=== PATIENT | female | born 1955 | race African-American/Black ===

== ENCOUNTER 2016-06-29 13:38 | Emergency (ER) | payer MEDICARE, MEDICAID ==
[~2016-06-29] VITALS: Ht 162.6 cm; Wt 80.0 kg
[2016-06-29] MEDS ORDERED: KETOROLAC 30MG/ML VIAL IM ONE (15:15)
[2016-06-29] MEDS ORDERED: CYCLOBENZAPRINE 10MG TABLET PO ONE (15:15)
[2016-06-29 15:52] LABS: CLARITY URINE CLEAR (CLEAR); COLOR URINE YELLOW (YELLOW); GLUCOSE URINE NEGATIVE (NEGATIVE); KETONES URINE NEGATIVE (NEGATIVE); LEUKOCYTE ESTERASE URINE NEGATIVE (NEGATIVE); NITRITE URINE NEGATIVE (NEGATIVE); OCCULT BLOOD URINE NEGATIVE (NEGATIVE); PROTEIN URINE NEGATIVE (NEGATIVE); SPECIFIC GRAVITY URINE 1.023 (1.005-1.030); UROBILINOGEN URINE 0.2 E.U./dL (0.2-1.0)
[2016-06-29] MEDS ORDERED: HYDROCODONE/ACETAMINOPHEN 5/325MG TABLET PO ONE (16:45)
[2016-06-29 17:04] VITALS: BP 118/56
== END 2016-06-29 17:36 | disposition home or self-care (01) ==
LOC: ER 13:39
DX: S80.11XA Contusion of right lower leg, initial encounter (principal); K21.9 Gastro-esophageal reflux disease without esophagitis; E78.00 Pure hypercholesterolemia, unspecified; X58.XXXA Exposure to other specified factors, initial encounter; Y93.89 Activity, other specified; Y92.89 Other specified places as the place of occurrence of the external cause; Y99.8 Other external cause status
CPT/HCPCS: 36415; 81003; 85379; 96372; 99284; J1885

== ENCOUNTER 2016-07-05 07:18 | Emergency (ER) | payer MEDICARE, MEDICAID ==
[~2016-07-05] VITALS: Ht 162.6 cm; Wt 80.0 kg
[2016-07-05 07:33] VITALS: BP 117/79
== END 2016-07-05 10:22 | disposition home or self-care (01) ==
LOC: ER 08:50
DX: J20.9 Acute bronchitis, unspecified (principal); Z88.6 Allergy status to analgesic agent
CPT/HCPCS: 99283

== ENCOUNTER → 2016-09-05 | Outpatient (CLI) | payer MEDICARE, MEDICAID | END | disposition home or self-care (01) | LOC: MRI 08:58 | PROVIDERS: ATTEND Neurological Surgery | DX: M48.02 Spinal stenosis, cervical region (principal); M50.221 Other cervical disc displacement at C4-C5 level; M50.222 Other cervical disc displacement at C5-C6 level; M50.223 Other cervical disc displacement at C6-C7 level | CPT/HCPCS: 72141 ==

== ENCOUNTER 2016-11-10 17:30 | Inpatient (IN) | payer MEDICARE, MEDICAID ==
[~2016-11-10] VITALS: Ht 162.6 cm; Wt 84.4 kg
[~2016-11-10 17:30] MED LIST: CALC-1011 PO; ESOM40CA PO; HYDR-3933 PO
[2016-11-10 20:00] VITALS: BP 127/77
[2016-11-10] MEDS ORDERED: IPRATROPIUM/ALBUTEROL 0.5-3(2.5)MG/3ML NEB HHN PRN (21:30)
[2016-11-10] MEDS ORDERED: LACTULOSE 20G/30ML UDC PO PRN (21:30)
[2016-11-10] MEDS ORDERED: DIPHENHYDRAMINE 50MG CAPSULE PO PRN (21:30)
[2016-11-10] MEDS ORDERED: ONDANSETRON HCL 4MG/2ML VIAL IV PRN (21:30)
[2016-11-10] MEDS: HYDROCODONE/ACETAMINOPHEN 10/325MG TABLET PO PRN (21:59)
[2016-11-10] MEDS: DOCUSATE SODIUM 100MG CAPSULE PO SCH (22:13)
[2016-11-10 23:00] VITALS: BP 127/77
[2016-11-11 08:00] VITALS: BP 137/69
[2016-11-11] MEDS: DOCUSATE SODIUM 100MG CAPSULE PO SCH ×2 (08:36→18:03)
[2016-11-11] MEDS: HYDROCODONE/ACETAMINOPHEN 10/325MG TABLET PO PRN ×3 (08:38→21:10)
[2016-11-11] MEDS ORDERED: BISACODYL 5MG TABLET PO PRN (16:15)
[2016-11-11] MEDS ORDERED: TRAMADOL 50MG TABLET PO PRN (16:15)
[2016-11-11 20:00] VITALS: BP 129/80
[2016-11-11] MEDS ORDERED: PANTOPRAZOLE 40MG DR TABLET PO NR (21:00)
[2016-11-12] MEDS: PANTOPRAZOLE 40MG DR TABLET PO SCH (06:27)
[2016-11-12 06:33] LABS: BASOPHILS % 0.6 % (0.0-2.0); EOSINOPHILS % 3.8 % (0.0-5.0); HEMATOCRIT. 42.5 % (36.0-48.0); HEMOGLOBIN. 14.5 g/dL (12.0-16.0); LYMPHOCYTES % 31.8 % (20.0-50.0); MEAN CORPUSCULAR HEMOGLOBIN 29.4 pg (28.0-32.0); MEAN CORPUSCULAR VOLUME 86.3 fL (81.0-99.0); MEAN PLATELET VOLUME 8.9 fl (7.4-10.4); MONOCYTES % 7.5 % (2.0-8.0); NEUTROPHILS % 56.3 % (40.0-76.0); PLATELET 174 x1000/uL (130-400); RED BLOOD CELL COUNT 4.92 mill/uL (4.2-5.4)
[2016-11-12 07:36] LABS: CHLORIDE 102 mEq/L (98-107)
[2016-11-12 07:46] LABS: CARBON DIOXIDE 26 mEq/L (21-32); HDL CHOLESTEROL 50 mg/dL (40-59); LDL CHOLESTEROL 125 mg/dL (5-100)
[2016-11-12 08:00] VITALS: BP 122/82
[2016-11-12] MEDS: HYDROCODONE/ACETAMINOPHEN 10/325MG TABLET PO PRN ×2 (08:58→15:09)
[2016-11-12] MEDS: DOCUSATE SODIUM 100MG CAPSULE PO SCH ×2 (08:58→17:00)
[2016-11-12 20:00] VITALS: BP 130/78
[2016-11-12] MEDS: BISACODYL 10MG SUPP PR PRN (20:05)
[2016-11-12] MEDS: ATORVASTATIN CALCIUM 10MG TABLET PO SCH (20:06)
[2016-11-13] MEDS: PANTOPRAZOLE 40MG DR TABLET PO SCH (06:37)
[2016-11-13 08:00] VITALS: BP 111/61
[2016-11-13] MEDS: DOCUSATE SODIUM 100MG CAPSULE PO SCH ×2 (09:03→16:44)
[2016-11-13] MEDS: HYDROCODONE/ACETAMINOPHEN 10/325MG TABLET PO PRN ×2 (09:05→21:23)
[2016-11-13] MEDS ORDERED: ACETAMINOPHEN 325MG TABLET PO PRN (13:45)
[2016-11-13] MEDS: BACLOFEN 10MG TABLET PO SCH ×2 (14:01→16:44)
[2016-11-13 20:00] VITALS: BP 132/68
[2016-11-13] MEDS: ATORVASTATIN CALCIUM 10MG TABLET PO SCH (21:20)
[2016-11-14 08:00] VITALS: BP 110/62
[2016-11-14] MEDS: DOCUSATE SODIUM 100MG CAPSULE PO SCH ×2 (09:05→18:10)
[2016-11-14] MEDS: BACLOFEN 10MG TABLET PO SCH ×2 (09:05→18:11)
[2016-11-14] MEDS: FAMOTIDINE 20MG TABLET PO SCH ×2 (09:05→18:11)
[2016-11-14] MEDS: HYDROCODONE/ACETAMINOPHEN 10/325MG TABLET PO PRN ×2 (09:07→14:01)
[2016-11-14 19:00] VITALS: BP 129/81
[2016-11-14] MEDS: ATORVASTATIN CALCIUM 10MG TABLET PO SCH (21:11)
[2016-11-14] MEDS: HYDROMORPHONE HCL/PF 2MG/ML CPJ IM PRN (21:30)
[2016-11-14] MEDS: ONDANSETRON HCL 4MG TABLET PO PRN (23:27)
[2016-11-15] MEDS: FAMOTIDINE 20MG TABLET PO SCH ×2 (07:12→17:00)
[2016-11-15 08:00] VITALS: BP 109/57
[2016-11-15] MEDS: BACLOFEN 10MG TABLET PO SCH ×2 (08:44→17:00)
[2016-11-15] MEDS: DOCUSATE SODIUM 100MG CAPSULE PO SCH ×2 (08:44→17:00)
[2016-11-15] MEDS: HYDROMORPHONE HCL/PF 2MG/ML CPJ IM PRN (10:02)
[2016-11-15] MEDS: ONDANSETRON HCL 4MG TABLET PO PRN (16:03)
[2016-11-15] MEDS: HYDROCODONE/ACETAMINOPHEN 10/325MG TABLET PO PRN (16:04)
[2016-11-15 16:57] LABS: CLARITY URINE CLEAR (CLEAR); COLOR URINE YELLOW (YELLOW); GLUCOSE URINE NEGATIVE (NEGATIVE); KETONES URINE NEGATIVE (NEGATIVE); LEUKOCYTE ESTERASE URINE NEGATIVE (NEGATIVE); NITRITE URINE NEGATIVE (NEGATIVE); OCCULT BLOOD URINE NEGATIVE (NEGATIVE); PROTEIN URINE NEGATIVE (NEGATIVE); SPECIFIC GRAVITY URINE 1.013 (1.005-1.030)
[2016-11-15] MEDS: ACETAMINOPHEN 500MG TABLET PO SCH ×2 (17:00→21:00)
[2016-11-15] MEDS: LACTULOSE 20G/30ML UDC PO SCH (17:00)
[2016-11-15] MEDS: BISACODYL 10MG SUPP PR PRN (17:01)
[2016-11-15] MEDS: TRAMADOL 50MG TABLET PO SCH ×2 (17:01→21:00)
[2016-11-15 20:00] VITALS: BP 122/85
[2016-11-15] MEDS: ATORVASTATIN CALCIUM 10MG TABLET PO SCH (21:39)
[2016-11-16] MEDS: FAMOTIDINE 20MG TABLET PO SCH ×2 (05:25→16:15)
[2016-11-16 06:57] LABS: BASOPHILS % 0.7 % (0.0-2.0); EOSINOPHILS % 3.5 % (0.0-5.0); HEMATOCRIT. 41.4 % (36.0-48.0); HEMOGLOBIN. 14.1 g/dL (12.0-16.0); MEAN CORPUSCULAR HEMOGLOBIN 29.4 pg (28.0-32.0); MEAN CORPUSCULAR VOLUME 86.3 fL (81.0-99.0); MEAN PLATELET VOLUME 8.4 fl (7.4-10.4); MONOCYTES % 9.2 % (2.0-8.0); NEUTROPHILS % 49.6 % (40.0-76.0); PLATELET 175 x1000/uL (130-400); RED CELL DISTRIBUTION WIDTH 13.4 % (11.6-14.6)
[2016-11-16 07:26] LABS: CARBON DIOXIDE 28 mEq/L (21-32); CHLORIDE 103 mEq/L (98-107); TOTAL IRON BINDING CAPACITY 247 ug/dL (250-450)
[2016-11-16 08:00] VITALS: BP 111/78
[2016-11-16 08:13] LABS: FOLIC ACID (FOLATE) SERUM 17.8 ng/mL (>5.38)
[2016-11-16] MEDS: DOCUSATE SODIUM 100MG CAPSULE PO SCH ×2 (08:29→16:15)
[2016-11-16] MEDS: BACLOFEN 10MG TABLET PO SCH ×2 (08:29→16:15)
[2016-11-16] MEDS: ACETAMINOPHEN 500MG TABLET PO SCH ×4 (08:34→21:00)
[2016-11-16] MEDS: TRAMADOL 50MG TABLET PO SCH ×4 (08:34→21:00)
[2016-11-16] MEDS: HYDROMORPHONE HCL/PF 2MG/ML CPJ IM PRN (08:42)
[2016-11-16] MEDS: ONDANSETRON HCL 4MG TABLET PO PRN (11:00)
[2016-11-16] MEDS: LACTULOSE 20G/30ML UDC PO SCH (18:31)
[2016-11-16] MEDS: HYDROCODONE/ACETAMINOPHEN 10/325MG TABLET PO PRN (18:33)
[2016-11-16 20:00] VITALS: BP 140/44
[2016-11-16] MEDS: ATORVASTATIN CALCIUM 10MG TABLET PO SCH (21:25)
[2016-11-17] MEDS: FAMOTIDINE 20MG TABLET PO SCH ×2 (06:21→17:58)
[2016-11-17] MEDS: HYDROMORPHONE HCL/PF 2MG/ML CPJ IM PRN (06:21)
[2016-11-17 08:00] VITALS: BP 117/56
[2016-11-17] MEDS: DOCUSATE SODIUM 100MG CAPSULE PO SCH ×2 (08:15→17:58)
[2016-11-17] MEDS: BACLOFEN 10MG TABLET PO SCH ×3 (08:15→17:58)
[2016-11-17] MEDS: ACETAMINOPHEN 500MG TABLET PO SCH ×5 (08:15→21:00)
[2016-11-17] MEDS: TRAMADOL 50MG TABLET PO SCH ×5 (08:17→21:00)
[2016-11-17 08:19] LABS: T4 FREE 1.11 ng/dL (0.76-1.46)
[2016-11-17] MEDS: ONDANSETRON HCL 4MG TABLET PO PRN (08:25)
[2016-11-17 12:10] VITALS: BP 129/68
[2016-11-17] MEDS: HYDROCODONE/ACETAMINOPHEN 10/325MG TABLET PO PRN (12:16)
[2016-11-17 14:10] VITALS: BP 127/81
[2016-11-17] MEDS: LACTULOSE 20G/30ML UDC PO SCH (17:51)
[2016-11-17 20:00] VITALS: BP 110/48
[2016-11-17] MEDS: ATORVASTATIN CALCIUM 10MG TABLET PO SCH (21:00)
[2016-11-18] MEDS: FAMOTIDINE 20MG TABLET PO SCH ×2 (06:26→17:07)
[2016-11-18 08:00] VITALS: BP 113/70
[2016-11-18] MEDS: BACLOFEN 10MG TABLET PO SCH ×2 (08:25→17:07)
[2016-11-18] MEDS: DOCUSATE SODIUM 100MG CAPSULE PO SCH ×2 (08:25→17:07)
[2016-11-18] MEDS: HYDROCODONE/ACETAMINOPHEN 10/325MG TABLET PO PRN ×2 (08:26→16:29)
[2016-11-18] MEDS: ACETAMINOPHEN 500MG TABLET PO SCH ×2 (08:28→13:00)
[2016-11-18] MEDS: TRAMADOL 50MG TABLET PO SCH ×2 (08:28→13:00)
[2016-11-18] MEDS: LACTULOSE 20G/30ML UDC PO SCH (17:07)
[2016-11-18 20:00] VITALS: BP 105/55
[2016-11-18] MEDS: BISACODYL 10MG SUPP PR PRN (21:30)
[2016-11-18] MEDS: ATORVASTATIN CALCIUM 10MG TABLET PO SCH (21:30)
[2016-11-19] MEDS: FAMOTIDINE 20MG TABLET PO SCH ×2 (06:21→17:37)
[2016-11-19 06:58] VITALS: BP 104/55
[2016-11-19] MEDS: DOCUSATE SODIUM 100MG CAPSULE PO SCH ×2 (08:25→17:37)
[2016-11-19] MEDS: BACLOFEN 10MG TABLET PO SCH ×2 (08:25→17:37)
[2016-11-19 11:40] VITALS: BP 110/76
[2016-11-19] MEDS: HYDROCODONE/ACETAMINOPHEN 10/325MG TABLET PO PRN ×2 (11:40→23:46)
[2016-11-19] MEDS: LACTULOSE 20G/30ML UDC PO SCH (18:00)
[2016-11-19 20:29] VITALS: BP 126/78
[2016-11-19] MEDS: ATORVASTATIN CALCIUM 10MG TABLET PO SCH (21:21)
[2016-11-20] MEDS: FAMOTIDINE 20MG TABLET PO SCH ×2 (05:58→18:01)
[2016-11-20 08:00] VITALS: BP 99/57
[2016-11-20] MEDS: DOCUSATE SODIUM 100MG CAPSULE PO SCH ×2 (08:31→18:01)
[2016-11-20] MEDS: BACLOFEN 10MG TABLET PO SCH ×2 (08:31→18:01)
[2016-11-20] MEDS: HYDROCODONE/ACETAMINOPHEN 10/325MG TABLET PO PRN (15:09)
[2016-11-20 15:10] VITALS: BP 122/65
[2016-11-20 15:43] VITALS: BP 122/65
[2016-11-20] MEDS: LACTULOSE 20G/30ML UDC PO SCH (18:00)
== END 2016-11-20 18:57 | disposition home health service (06) | DRG 552 ==
PROVIDERS: ADMIT Psychiatry & Neurology Neurology; ATTEND Internal Medicine
DX: M48.02 Spinal stenosis, cervical region (principal); G95.89 Other specified diseases of spinal cord; I10 Essential (primary) hypertension; E11.9 Type 2 diabetes mellitus without complications; E78.5 Hyperlipidemia, unspecified; K59.00 Constipation, unspecified; M54.12 Radiculopathy, cervical region; M54.40 Lumbago with sciatica, unspecified side; M79.7 Fibromyalgia; L29.9 Pruritus, unspecified; F41.9 Anxiety disorder, unspecified; F32.9 Major depressive disorder, single episode, unspecified; M50.30 Other cervical disc degeneration, unspecified cervical region; R26.89 Other abnormalities of gait and mobility; F06.31 Mood disorder due to known physiological condition with depressive features; G89.4 Chronic pain syndrome; Z79.899 Other long term (current) drug therapy; Z88.6 Allergy status to analgesic agent
CPT/HCPCS: 36415; 80048; 80053; 80061; 81003; 82306; 82607; 82728; 82746; 83540; 83550; 84439; 84443; 84481; 84630; 85025; 87086; 92610; 93970; 94664; 97110; 97116; 97163; 97167; 97530; 97535; J1170; J7620; Q0162

== ENCOUNTER → 2017-01-02 | Outpatient (CLI) | payer MEDICARE, MEDICAID ==
[~2017-01-02] MED LIST changes: -HYDR-3933 PO; +HYDR-4009 PO
== END | disposition home or self-care (01) ==
LOC: RAD 12:44
PROVIDERS: ATTEND Neurological Surgery
DX: M47.892 Other spondylosis, cervical region (principal)
CPT/HCPCS: 72052

== ENCOUNTER → 2017-06-30 | Outpatient (CLI) | payer MEDICARE, MEDICAID | END | disposition home or self-care (01) | LOC: MRI 09:10 | PROVIDERS: ATTEND Internal Medicine | DX: S86.812A Strain of other muscle(s) and tendon(s) at lower leg level, left leg, initial encounter (principal); M22.42 Chondromalacia patellae, left knee; X58.XXXA Exposure to other specified factors, initial encounter; Y93.89 Activity, other specified; Y92.89 Other specified places as the place of occurrence of the external cause; Y99.8 Other external cause status | CPT/HCPCS: 73721 ==

== ENCOUNTER 2017-11-14 10:32 | Emergency (ER) | payer MEDICARE, MEDICAID ==
[~2017-11-14] VITALS: Ht 162.6 cm; Wt 80.0 kg
[2017-11-14 11:05] VITALS: BP 127/71
== END 2017-11-14 16:15 | disposition left against medical advice (07) ==
LOC: ER 12:39
DX: M54.5 Low back pain (principal); R10.30 Lower abdominal pain, unspecified; E78.00 Pure hypercholesterolemia, unspecified; H40.9 Unspecified glaucoma; Z47.1 Aftercare following joint replacement surgery; Z53.21 Procedure and treatment not carried out due to patient leaving prior to being seen by health care provider

== ENCOUNTER → 2017-12-12 | Outpatient (CLI) | payer MEDICARE, MEDICAID | END | disposition home or self-care (01) | LOC: MRI 12:33 | PROVIDERS: ATTEND Internal Medicine | DX: M25.551 Pain in right hip (principal); M54.16 Radiculopathy, lumbar region | CPT/HCPCS: 72195 ==

== ENCOUNTER → 2018-02-20 | Outpatient (CLI) | payer MEDICARE, MEDICAID | END | disposition home or self-care (01) | LOC: MRI 10:11 | PROVIDERS: ATTEND Neurological Surgery | DX: M50.322 Other cervical disc degeneration at C5-C6 level (principal); M48.02 Spinal stenosis, cervical region; M47.892 Other spondylosis, cervical region | CPT/HCPCS: 72052; 72141 ==

== ENCOUNTER → 2018-12-19 | Outpatient (CLI) | payer MEDICARE, OTHER | END | disposition home or self-care (01) | LOC: MRI 08:45 | PROVIDERS: ATTEND Neurological Surgery | DX: M48.061 Spinal stenosis, lumbar region without neurogenic claudication (principal); M48.04 Spinal stenosis, thoracic region; M47.816 Spondylosis without myelopathy or radiculopathy, lumbar region | CPT/HCPCS: 72114; 72148 ==

== ENCOUNTER → 2020-01-22 | Outpatient (CLI) | payer MEDICARE, MEDICAID | END | disposition home or self-care (01) | LOC: MRI 10:02 | PROVIDERS: ATTEND Neurological Surgery | DX: M47.27 Other spondylosis with radiculopathy, lumbosacral region (principal); M47.814 Spondylosis without myelopathy or radiculopathy, thoracic region; M51.35 Other intervertebral disc degeneration, thoracolumbar region; M51.27 Other intervertebral disc displacement, lumbosacral region; M51.24 Other intervertebral disc displacement, thoracic region; M48.07 Spinal stenosis, lumbosacral region | CPT/HCPCS: 72114; 72148 ==

== ENCOUNTER → 2020-09-10 | Outpatient (CLI) | payer MEDICARE, MEDICAID ==
[~2020-09-10] MED LIST changes: -CALC-1011 PO; -ESOM40CA PO; +LACT10SO6 PO; +PANT40TA51 PO; +TRAV2.5D EACHEYE
== END | disposition home or self-care (01) ==
LOC: MRI 10:11
PROVIDERS: ATTEND Neurological Surgery
DX: M43.16 Spondylolisthesis, lumbar region (principal); M51.27 Other intervertebral disc displacement, lumbosacral region; M48.07 Spinal stenosis, lumbosacral region; M51.25 Other intervertebral disc displacement, thoracolumbar region; M48.05 Spinal stenosis, thoracolumbar region; M54.9 Dorsalgia, unspecified; Z98.1 Arthrodesis status
CPT/HCPCS: 72114; 72148

== ENCOUNTER 2020-10-31 10:06 | Emergency (ER) | payer MEDICARE, MEDICAID ==
[~2020-10-31] VITALS: Ht 162.6 cm; Wt 85.0 kg
[~2020-10-31 10:06] MED LIST changes: -TRAV2.5D EACHEYE; +TRAV2.5D9 EACHEYE
[2020-10-31 10:31] VITALS: BP 155/76
[2020-10-31] MEDS ORDERED: BACITRACIN ZINC OINT UDPKT TOP ONE (11:00)
[2020-10-31] MEDS ORDERED: LIDOCAINE HCL/EPINEPHRINE 1%-EPI 1:100,000 20 ML VIAL INFIL ONE (11:00)
[2020-10-31] MEDS ORDERED: KETOROLAC 60MG/2ML VIAL IM ONE (11:00)
[2020-10-31] MEDS ORDERED: SULF1TAB48 MT ×2 (11:09)
[2020-10-31] MEDS ORDERED: CEPH500C2 MT ×2 (11:09)
== END 2020-10-31 11:46 | disposition home or self-care (01) ==
LOC: ER 10:06
DX: L02.212 Cutaneous abscess of back [any part, except buttock and flank] (principal); M25.512 Pain in left shoulder; E78.5 Hyperlipidemia, unspecified; H40.9 Unspecified glaucoma; Z88.5 Allergy status to narcotic agent
CPT/HCPCS: 10060; 96372; 99283; J1885

== ENCOUNTER 2020-11-04 07:42 | Emergency (ER) | payer MEDICARE, MEDICAID ==
[~2020-11-04] VITALS: Ht 162.6 cm; Wt 81.0 kg
[~2020-11-04 07:42] MED LIST changes: +CEPH500C2 MT; +SULF1TAB48 MT
[2020-11-04] MEDS ORDERED: HYDROCODONE/ACETAMINOPHEN 5/325MG TABLET PO ONE (08:15)
[2020-11-04 08:22] VITALS: BP 133/74
== END 2020-11-04 08:47 | disposition home or self-care (01) ==
LOC: ER 07:42
DX: Z48.00 Encounter for change or removal of nonsurgical wound dressing (principal); I10 Essential (primary) hypertension; H40.9 Unspecified glaucoma; E78.00 Pure hypercholesterolemia, unspecified; M19.90 Unspecified osteoarthritis, unspecified site; Z98.1 Arthrodesis status; Z88.2 Allergy status to sulfonamides
CPT/HCPCS: 99282

== ENCOUNTER 2020-11-09 08:28 | Inpatient (IN) | payer MEDICARE, MEDICAID ==
[~2020-11-09] VITALS: Ht 162.6 cm; Wt 80.7 kg
[2020-11-09] MEDS ORDERED: MORPHINE SULFATE 4 MG/ML CPJ (NOT FOR IM USE) IV STA (10:09)
[2020-11-09] MEDS ORDERED: KETOROLAC 30MG/ML VIAL IV ONE (10:45)
[2020-11-09 11:35] LABS: BASOPHILS % 0.7 % (0.0-2.0); HEMATOCRIT. 40.5 % (36.0-48.0); HEMOGLOBIN. 13.6 g/dL (12.0-16.0); MEAN CORPUSCULAR HEMOGLOBIN 28.9 pg (28.0-32.0); MEAN CORPUSCULAR VOLUME 85.8 fL (81.0-99.0); MEAN PLATELET VOLUME 9.2 fl (7.4-10.4); MONOCYTES % 8.2 % (2.0-8.0); NEUTROPHILS % 56.1 % (40.0-76.0); PLATELET 187 x1000/uL (130-400); RED BLOOD CELL COUNT 4.71 mill/uL (4.2-5.4); RED CELL DISTRIBUTION WIDTH 14.4 % (11.6-14.6)
[2020-11-09 11:41] LABS: CHLORIDE 107 mEq/L (98-107)
[2020-11-09] MEDS ORDERED: OXYCODONE HCL/ACETAMINOPHEN 5/325MG TABLET PO ONE (12:30)
[2020-11-09] MEDS ORDERED: MORPHINE SULFATE 4 MG/ML CPJ (NOT FOR IM USE) IV ONE (12:30)
[2020-11-09] MEDS ORDERED: MAGNESIUM/ALUMINUM HYDROXIDE/SIMETHICONE 30ML UDC PO PRN (13:45)
[2020-11-09] MEDS ORDERED: DOCUSATE SODIUM 100MG CAPSULE PO PRN (13:45)
[2020-11-09] MEDS ORDERED: GUAIFENESIN 200MG/10ML SUGAR FREE UDC PO PRN (13:45)
[2020-11-09] MEDS ORDERED: CLONIDINE 0.1MG TABLET PO PRN (13:45)
[2020-11-09] MEDS ORDERED: ACETAMINOPHEN 325MG TABLET PO PRN (13:45)
[2020-11-09] MEDS ORDERED: HYDROCODONE/ACETAMINOPHEN 5/325MG TABLET PO PRN (13:45)
[2020-11-09] MEDS ORDERED: NALOXONE HCL 0.4MG/ML VIAL IV PRN (14:00)
[2020-11-09 15:40] LABS: CREATINE KINASE 151 IU/L (26-192)
[2020-11-09 16:00] VITALS: BP 139/65
[2020-11-09] MEDS: ENOXAPARIN 40MG/0.4ML SYR SUBCUT SCH (16:33)
[2020-11-09] MEDS: HYDROMORPHONE HCL/PF 2MG/ML CPJ IV PRN ×2 (16:34→20:51)
[2020-11-09 16:52] VITALS: BP 139/65
[2020-11-09] MEDS ORDERED: *PATIENT'S OWN MEDICATION STORAGE XX SCH (17:30)
[2020-11-09 20:00] VITALS: BP 136/67
[2020-11-09 22:00] VITALS: BP 131/76
[2020-11-09] MEDS: ONDANSETRON HCL 4MG/2ML INJ IV PRN (22:23)
[2020-11-09 23:51] LABS: CREATINE KINASE 145 IU/L (26-192)
[2020-11-10] VITALS (8 sets, daily range): BP systolic 95–134; BP diastolic 51–74
[2020-11-10 06:34] LABS: CHLORIDE 107 mEq/L (98-107)
[2020-11-10 06:57] LABS: BASOPHILS % 0.8 % (0.0-2.0); EOSINOPHILS % 3.7 % (0.0-5.0); HEMATOCRIT. 39.6 % (36.0-48.0); HEMOGLOBIN. 13.3 g/dL (12.0-16.0); LYMPHOCYTES % 48.9 % (20.0-50.0); MEAN CORPUSCULAR HEMOGLOBIN 28.9 pg (28.0-32.0); MEAN CORPUSCULAR VOLUME 86.1 fL (81.0-99.0); MEAN PLATELET VOLUME 9.2 fl (7.4-10.4); MONOCYTES % 8.3 % (2.0-8.0); NEUTROPHILS % 38.3 % (40.0-76.0); PLATELET 179 x1000/uL (130-400); RED CELL DISTRIBUTION WIDTH 14.2 % (11.6-14.6)
[2020-11-10 07:04] LABS: LDL CHOLESTEROL 126 mg/dL (5-100)
[2020-11-10 07:05] LABS: HDL CHOLESTEROL 57 mg/dL (40-59)
[2020-11-10] MEDS: AMLODIPINE 10MG TABLET PO SCH (08:43)
[2020-11-10] MEDS: ASPIRIN 81MG EC TABLET PO SCH (08:44)
[2020-11-10] MEDS: HYDROMORPHONE HCL/PF 2MG/ML CPJ IV PRN ×3 (08:52→20:38)
[2020-11-10] MEDS ORDERED: METHOCARBAMOL 500MG TABLET PO PRN (15:30)
[2020-11-10] MEDS ORDERED: HYDROCODONE/ACETAMINOPHEN 10/325MG TABLET PO PRN (15:30)
[2020-11-10] MEDS: ENOXAPARIN 40MG/0.4ML SYR SUBCUT SCH (16:25)
[2020-11-10] MEDS ORDERED: ATORVASTATIN CALCIUM 40MG TABLET PO SCH (21:00)
[2020-11-10] MEDS: GABAPENTIN 300MG CAPSULE PO SCH (21:07)
[2020-11-11] VITALS: BP 102/58
[2020-11-11 04:00] VITALS: BP 100/54
[2020-11-11] MEDS: GABAPENTIN 300MG CAPSULE PO SCH ×2 (06:43→15:20)
[2020-11-11 08:00] VITALS: BP 118/68
[2020-11-11] MEDS: ASPIRIN 81MG EC TABLET PO SCH (10:09)
[2020-11-11] MEDS: AMLODIPINE 10MG TABLET PO SCH (10:10)
[2020-11-11] MEDS: HYDROMORPHONE HCL/PF 2MG/ML CPJ IV PRN (11:54)
[2020-11-11 14:13] VITALS: BP 106/53
[2020-11-11] MEDS: ONDANSETRON HCL 4MG/2ML INJ IV PRN (15:21)
[2020-11-11] MEDS: ENOXAPARIN 40MG/0.4ML SYR SUBCUT SCH (15:21)
[2020-11-11] MEDS ORDERED: ATORVASTATIN CALCIUM 40MG TABLET PO SCH (21:00)
[2020-11-11] MEDS ORDERED: ATORVASTATIN CALCIUM 20MG TABLET PO SCH (21:00)
== END 2020-11-11 15:55 | disposition home health service (06) | DRG 552 ==
LOC: ER 08:28 → 8WST 12:31 → EDBEDREQTM 12:37 → EDBEDREQ 12:37 → ENRESERV 12:48
PROVIDERS: ADMIT Hospitalist; ATTEND Hospitalist
DX: M47.26 Other spondylosis with radiculopathy, lumbar region (principal); M94.0 Chondrocostal junction syndrome [Tietze]; M51.16 Intervertebral disc disorders with radiculopathy, lumbar region; E78.5 Hyperlipidemia, unspecified; I10 Essential (primary) hypertension; G89.29 Other chronic pain; M54.5 Low back pain; Z98.1 Arthrodesis status; Z79.899 Other long term (current) drug therapy; Z88.6 Allergy status to analgesic agent; R10.9 Unspecified abdominal pain
CPT/HCPCS: 36415; 71045; 72148; 74176; 80053; 80061; 82550; 83880; 84484; 85025; 93005; 93306; 93970; 97162; 99285; C1893; J1170; J1650; J1885; J2270; J2405

== ENCOUNTER → 2020-11-20 | Outpatient (CLI) | payer MEDICARE, MEDICAID ==
[~2020-11-20] MED LIST changes: -CEPH500C2 MT; -LACT10SO6 PO; -SULF1TAB48 MT
== END | disposition home or self-care (01) ==
LOC: MRI 12:31
PROVIDERS: ATTEND Orthopaedic Surgery
DX: M16.0 Bilateral primary osteoarthritis of hip (principal); M70.71 Other bursitis of hip, right hip; N32.89 Other specified disorders of bladder; M25.752 Osteophyte, left hip; M25.751 Osteophyte, right hip
CPT/HCPCS: 72195

== ENCOUNTER → 2021-02-24 | Outpatient (CLI) | payer MEDICARE, MEDICAID | END | disposition home or self-care (01) | LOC: MRI 10:19 | PROVIDERS: ATTEND Neurological Surgery | DX: M48.05 Spinal stenosis, thoracolumbar region (principal); M89.38 Hypertrophy of bone, other site; M43.26 Fusion of spine, lumbar region; Q05.7 Lumbar spina bifida without hydrocephalus | CPT/HCPCS: 72148 ==

== ENCOUNTER → 2021-10-01 | Outpatient (CLI) | payer MEDICARE, MEDICAID ==
[~2021-10-01] MED LIST changes: +ACET-2708 MT; +ATOR10TA MT; +LIDO1ADH23 TP; +MED4 MT; +MELO-104 MT; +METH-773 MT; +SULF1TAB48 MT
== END | disposition home or self-care (01) ==
LOC: MRI 09:44
PROVIDERS: ATTEND Neurological Surgery
DX: M51.37 Other intervertebral disc degeneration, lumbosacral region (principal); M54.51 Vertebrogenic low back pain
CPT/HCPCS: 72148

== ENCOUNTER 2022-01-24 13:26 | Emergency (ER) | payer MEDICARE, MEDICAID ==
[~2022-01-24] VITALS: Ht 167.6 cm; Wt 77.0 kg
[2022-01-24 13:29] VITALS: BP 108/81
[2022-01-24 16:54] LABS: BASOPHILS % 1.2 % (0.0-2.0); EOSINOPHILS % 1.7 % (0.0-5.0); HEMATOCRIT. 42.1 % (36.0-48.0); HEMOGLOBIN. 14.3 g/dL (12.0-16.0); LYMPHOCYTES % 41.4 % (20.0-50.0); MEAN CORPUSCULAR HEMOGLOBIN 29.1 pg (28.0-32.0); MEAN CORPUSCULAR VOLUME 85.9 fL (81.0-99.0); MONOCYTES % 6.1 % (2.0-8.0); NEUTROPHILS % 49.6 % (40.0-76.0); PLATELET 193 x1000/uL (130-400); RED CELL DISTRIBUTION WIDTH 13.7 % (11.6-14.6)
[2022-01-24 17:03] LABS: CHLORIDE 101 mEq/L (98-107)
[2022-01-24 17:22] LABS: CLARITY URINE CLEAR (CLEAR); COLOR URINE YELLOW (YELLOW); KETONES URINE NEGATIVE (NEGATIVE); LEUKOCYTE ESTERASE URINE TRACE (NEGATIVE); NITRITE URINE NEGATIVE (NEGATIVE); OCCULT BLOOD URINE NEGATIVE (NEGATIVE); PH URINE 6.5 (4.5-8.0); PROTEIN URINE NEGATIVE (NEGATIVE); SPECIFIC GRAVITY URINE 1.019 (1.005-1.030); UROBILINOGEN URINE 0.2 E.U./dL (0.2-1.0)
[2022-01-24] MEDS ORDERED: DOCU250C69 MT (18:14)
== END 2022-01-24 18:31 | disposition home or self-care (01) ==
LOC: ER 13:26
DX: K59.00 Constipation, unspecified (principal); M54.59 Other low back pain; R35.0 Frequency of micturition
CPT/HCPCS: 36415; 74176; 80053; 81003; 85025; 99284

== ENCOUNTER 2022-04-06 10:17 | Emergency (ER) | payer MEDICARE, MEDICAID ==
[~2022-04-06] VITALS: Ht 162.6 cm; Wt 79.0 kg
[~2022-04-06 10:17] MED LIST changes: +DOCU250C69 MT
[2022-04-06] MEDS ORDERED: ONDANSETRON HCL 4MG/2ML INJ IV STA (11:18)
[2022-04-06] MEDS ORDERED: SODIUM CHLORIDE 0.9% 1,000 ML IV ONE (11:30)
[2022-04-06 11:59] LABS: CHLORIDE 109 mEq/L (98-107)
[2022-04-06 12:01] LABS: BASOPHILS % 1.3 % (0.0-2.0); EOSINOPHILS % 1.2 % (0.0-5.0); HEMATOCRIT. 40.7 % (36.0-48.0); MEAN CORPUSCULAR HEMOGLOBIN 29.3 pg (28.0-32.0); MEAN CORPUSCULAR VOLUME 85.4 fL (81.0-99.0); MONOCYTES % 5.5 % (2.0-8.0); PLATELET 203 x1000/uL (130-400); RED BLOOD CELL COUNT 4.77 mill/uL (4.2-5.4); RED CELL DISTRIBUTION WIDTH 13.9 % (11.6-14.6)
[2022-04-06 12:08] LABS: ETHANOL BLOOD < 10 mg/dL
[2022-04-06 12:31] LABS: CLARITY URINE CLEAR (CLEAR); COLOR URINE YELLOW (YELLOW); KETONES URINE TRACE (NEGATIVE); LEUKOCYTE ESTERASE URINE NEGATIVE (NEGATIVE); NITRITE URINE NEGATIVE (NEGATIVE); OCCULT BLOOD URINE NEGATIVE (NEGATIVE); PH URINE 6.5 (4.5-8.0); PROTEIN URINE NEGATIVE (NEGATIVE); SPECIFIC GRAVITY URINE 1.025 (1.005-1.030)
[2022-04-06 13:23] LABS: *AMPHETAMINES SCREEN URINE NEGATIVE (NEGATIVE); *BARBITURATES SCREEN URINE NEGATIVE (NEGATIVE); *BENZODIAZEPINES SCREEN URINE NEGATIVE (NEGATIVE); *COCAINE SCREEN URINE NEGATIVE (NEGATIVE); CANNABINOID URINE SCREEN NEGATIVE (NEGATIVE); METHADONE URINE SCREEN NEGATIVE (NEGATIVE); OPIATES URINE SCREEN PRESUMTIVE POSITIVE (NEGATIVE); PHENCYCLIDINE URINE SCREEN NEGATIVE (NEGATIVE)
[2022-04-06 16:30] VITALS: BP 145/68
== END 2022-04-06 16:58 | disposition home or self-care (01) ==
LOC: ER 10:17
DX: B34.9 Viral infection, unspecified (principal); Z20.822 Contact with and (suspected) exposure to COVID-19; Z88.6 Allergy status to analgesic agent; Z79.899 Other long term (current) drug therapy; Z98.890 Other specified postprocedural states
CPT/HCPCS: 36415; 71045; 80053; 80305; 80320; 81003; 83880; 85025; 87426; 87804; 93005; 96374; 99285; C9803; J2405; J7030; G0480

== ENCOUNTER → 2023-09-01 | Outpatient (CLI) | payer MEDICARE, MEDICAID ==
[~2023-09-01] MED LIST changes: +TRAV2.5D EACHEYE; -TRAV2.5D9 EACHEYE
== END | disposition home or self-care (01) ==
LOC: MRI 11:46
PROVIDERS: ATTEND Internal Medicine
DX: M47.27 Other spondylosis with radiculopathy, lumbosacral region (principal); M47.817 Spondylosis without myelopathy or radiculopathy, lumbosacral region; M47.26 Other spondylosis with radiculopathy, lumbar region; M48.07 Spinal stenosis, lumbosacral region; M48.05 Spinal stenosis, thoracolumbar region; M51.35 Other intervertebral disc degeneration, thoracolumbar region; M47.815 Spondylosis without myelopathy or radiculopathy, thoracolumbar region; M51.16 Intervertebral disc disorders with radiculopathy, lumbar region; M25.78 Osteophyte, vertebrae; Z98.890 Other specified postprocedural states
CPT/HCPCS: 72148

== ENCOUNTER → 2023-10-25 | Outpatient (CLI) | payer MEDICARE, MEDICAID | END | disposition home or self-care (01) | LOC: MRI 09:58 | PROVIDERS: ATTEND Neurological Surgery | DX: M16.11 Unilateral primary osteoarthritis, right hip (principal); M25.451 Effusion, right hip; M76.891 Other specified enthesopathies of right lower limb, excluding foot; M25.551 Pain in right hip | CPT/HCPCS: 72195 ==

== ENCOUNTER → 2024-07-05 | Outpatient (CLI) | payer MEDICARE, MEDICAID ==
[~2024-07-05] MED LIST changes: +DOCU-405 MT; -DOCU250C69 MT; -MED4 MT; +METH4TAB95 MT
== END | disposition home or self-care (01) ==
LOC: MRI 12:45
PROVIDERS: ATTEND Internal Medicine
DX: M16.11 Unilateral primary osteoarthritis, right hip (principal); M25.851 Other specified joint disorders, right hip; M25.551 Pain in right hip
CPT/HCPCS: 73721

== ENCOUNTER → 2024-07-30 | Outpatient (CLI) | payer MEDICARE, MEDICAID | END | disposition home or self-care (01) | LOC: RAD 09:53 | DX: M16.0 Bilateral primary osteoarthritis of hip (principal); M76.892 Other specified enthesopathies of left lower limb, excluding foot; M76.891 Other specified enthesopathies of right lower limb, excluding foot; M25.852 Other specified joint disorders, left hip; M25.851 Other specified joint disorders, right hip; M25.552 Pain in left hip; M25.551 Pain in right hip; R10.2 Pelvic and perineal pain | CPT/HCPCS: 73521 ==